=== PATIENT | female | born 1940 ===

== ENCOUNTER 2021-03-07 11:15 | Inpatient (IN) | payer OTHER ==
[~2021-03-07 11:15] MED LIST: AMLODIPINE BESYL5 MG PO; ATORVASTATIN CA40 MG PO; BUMETANIDE1 MG PO; CARVEDILOL25 M1 PO; CILOSTAZOL100 MG PO; COZAAR50 MG PO; FORTAMET1000 MG PO; LANTUS; MAXIM PO; MELATONIN10 MG PO; PANTOPRAZOLE SO40 MG PO; VITAMIN 12 PO; VITAMIN C PO
[2021-03-08] MEDS ORDERED: OMEPRAZOLE40 MG (08:15)
[2021-03-08] MEDS ORDERED: DOLOGEN CAPLET1 EACH (08:15)
[2021-03-08] MEDS ORDERED: FAMOTIDINE20 MG (08:15)
[2021-03-08] MEDS ORDERED: VITAMIN C1000 MG (08:16)
[2021-03-08] MEDS ORDERED: VITAMIN B-12100 MCG (08:16)
[2021-03-08] MEDS ORDERED: MAXIMUM D3325 MCG (08:17)
== END 2021-03-08 13:27 | disposition home or self-care (01) | DRG 483 ==
LOC: CIR.AMB 11:15 → SURG 21:40
PROVIDERS: ADMIT Orthopaedic Surgery Hand Surgery; ATTEND Orthopaedic Surgery Hand Surgery
PROC: 0RPL0JZ Removal of Synthetic Substitute from Right Elbow Joint, Open Approach (ICD-10-PCS; 2021-03-07)
PROC: 0RRL0JZ Replacement of Right Elbow Joint with Synthetic Substitute, Open Approach (ICD-10-PCS; principal; 2021-03-07 16:45)
DX: M19.021 Primary osteoarthritis, right elbow (principal); I10 Essential (primary) hypertension; E11.9 Type 2 diabetes mellitus without complications; Z79.84 Long term (current) use of oral hypoglycemic drugs; R22.31 Localized swelling, mass and lump, right upper limb